=== PATIENT | female | born 1995 | race Caucasian/White ===

== ENCOUNTER 2018-12-20 21:12 | Emergency (ER) | payer MEDICAID ==
[~2018-12-20] VITALS: Ht 157.5 cm; Wt 71.2 kg
[2018-12-20] MEDS ORDERED: MORPHINE SULFATE 4 MG/ML, 1ML IVPush PRN (21:30)
[2018-12-20] MEDS ORDERED: ONDANSETRON 2MG/ML, 2ML IVPush ONE (21:30)
[2018-12-20] MEDS ORDERED: SODIUM CHLORIDE 0.9% 1,000ML IVBOLUS ONE (21:30)
[2018-12-20] MEDS ORDERED: MORPHINE SULFATE 4 MG/ML, 1ML ONE (21:40)
[2018-12-20] MEDS ORDERED: ONDANSETRON 2MG/ML, 2ML ONE (21:40)
[2018-12-20 21:43] LABS: MEAN CORPUSCULAR HEMOGLOBIN 31.7 pg (27.0-34.8); MEAN CORPUSCULAR HGB CONC 33.5 g/dL (32.4-35.8); MEAN CORPUSCULAR VOLUME 94.7 fL (80-100); MEAN PLATELET VOLUME 9.2 fL (7.4-10.4); PLATELET COUNT 298 x10^3/uL (130-400); RED BLOOD COUNT 4.57 x10^6/uL (3.82-5.3); RED CELL DISTRIBUTION WIDTH 13.5 % (9.6-15.2)
[2018-12-20] MEDS ORDERED: FLUO20CA19 PO (21:47)
--- NOTE | 2018-12-20 21:47 | NUR ---
PT REPORTS VS. PT HAS A MIRINA IUD. PT REPORTS SHE HAS NOT HAD A PERIOD FOR THREE MONTHS SINCE THE IUD WAS PLACED. PT REPORTS BLEEDING NOW WITH CRAMPING. VS STABLE. FRIEND AT [facility]. CALL LIGHT IN PLACE. WILL CONTINUE TO MONITOR.
[2018-12-20 21:54] LABS: ALANINE AMINOTRANSFERASE 17 U/L (12-78); ALBUMIN 4.2 g/dL (3.4-5.0); ANION GAP 10 mmol/L (5-15); CALCIUM 9.7 mg/dL (8.5-10.1); CHLORIDE 106 mmol/L (98-107); CREATININE 1.05 mg/dL (0.55-1.02)
[2018-12-20 21:59] LABS: ALKALINE PHOSPHATASE 62 U/L (45-117); BILIRUBIN,TOTAL 1.5 mg/dL (0.2-1.0); TOTAL PROTEIN 8.8 g/dL (6.4-8.2)
[2018-12-20 22:18] LABS: BASOPHILS % (AUTO) 0 % (0-1); EOSINOPHILS # (AUTO) 0.01 x10^3/uL (0-0.4); EOSINOPHILS % (AUTO) 0 % (1-7); LYMPHOCYTES # (AUTO) 1.03 x10^3/uL (1-3.4); LYMPHOCYTES % (AUTO) 4 % (22-44); MD SCAN; MONOCYTES # (AUTO) 0.52 x10^3/uL (0.2-0.8); MONOCYTES % (AUTO) 2 % (2-9); NEUTROPHILS # (AUTO) 23.26 x10^3/uL (1.8-6.8); NEUTROPHILS % (AUTO) 94 % (42-75)
--- NOTE | 2018-12-20 22:26 | NUR ---
PT AMBULATED TO BATHROOM. UA CUP GIVEN.
--- NOTE | 2018-12-20 22:35 | NUR ---
UA SENT. DR PARDO HAS UPDATED PATIENT.
[2018-12-20 22:42] LABS: MICROSCOPIC INDICATED
[2018-12-20 22:45] LABS: CULTURE INDICATED? YES
[2018-12-20] MEDS ORDERED: OMNIPAQUE 350 MG/ML, 100ML BOTTLE ONE (23:11)
--- NOTE | 2018-12-20 23:15 | NUR ---
PATIENT BACK FROM CT. NO ACUTE DISTRESS NOTED. VS STABLE. WILL CONTINUE TO MONITOR.
[2018-12-20] MEDS ORDERED: CEFTRIAXONE PMX 1GM/50ML 50 ML IV ONE (23:30)
--- NOTE | 2018-12-20 23:51 | NUR ---
DR PARDO HAS UPDATED PATIENT.
--- NOTE | 2018-12-20 23:52 | NUR ---
REPORT GIVEN TO KARY HUMPHREYS FOR BREAK.
[2018-12-21] MEDS ORDERED: CEFTRIAXONE PMX 1GM/50ML 50 ML ONE (00:01)
[2018-12-21 00:31] VITALS: BP 100/61
== END 2018-12-21 00:51 | disposition home or self-care (01) ==
LOC: ED 22:15
DX: N93.8 Other specified abnormal uterine and vaginal bleeding (principal); N10 Acute pyelonephritis; I51.7 Cardiomegaly; E86.0 Dehydration; R19.7 Diarrhea, unspecified; R11.2 Nausea with vomiting, unspecified
CPT/HCPCS: 36415; 74177; 76830; 80053; 81001; 83690; 84703; 85025; 87086; 87147; 96361; 96365; 96375; 99284; J0696; J2270; J2405; J7030; Q9967